=== PATIENT | female | born 1980 | race Caucasian/White ===

== ENCOUNTER 2020-03-26 13:14 | Outpatient (CLI) | payer OTHER, SELFPAY ==
--- NOTE | ~2020-03-26 | US_ITS ---
EXAMINATION: US thyroid EXAM DATE: 03/26/2020 13:32 INDICATION: Hypothyroidism TECHNIQUE: Multiple grayscale and Doppler images of the thyroid were obtained (by a technologist who performed the scan) and subsequently reviewed. Individual nodules and recommendations may be reporte d in accordance with TI-RADS system as designated by the 2017 ACR White Paper TI-RADS committee. The re is no prior study for comparison. FINDINGS: The right there are lobe measures 5.5 x 1.2 x 1.2 cm, the left measuring 5.0 x 1.0 x 1.5 cm. There is moderately heterogeneous thyroid echogenicity and mild hypervascularity. Several focal regions were measured but they are isoechoic to the thyroid parenchyma, could be lobulations rather than thyroid n odules. Largest in the left thyroid lobe at 1.2 cm. IMPRESSION: Heterogeneous mildly hypervascular thyroid. Possible small thyroid nodules. Reviewed, dictated and finalized at location B. [employer]
== END 2020-03-26 13:15 ==
LOC: MICIMG 13:16
PROVIDERS: PCP Student in an Organized Health Care Education/Training Program; Visit Provider Student in an Organized Health Care Education/Training Program
DX: E03.9 Hypothyroidism, unspecified (principal)
CPT/HCPCS: 76536

== ENCOUNTER → 2021-02-05 11:00 | Outpatient (CLI) | payer OTHER, SELFPAY ==
--- NOTE | ~2021-02-05 | US_ITS ---
EXAMINATION: US pelvic complete DATE: 02/05/2021 11:20 INDICATION: Lower abdominal pain TECHNIQUE: Multiple transabdominal and endovaginal sonographic images of the pelvis were obtained. COMPARISON: 01/27/2011 FINDINGS: The uterus measures 10.2 x 4.1 x 5.2 cm. The endometrial complex measures 10 mm in thickness. Again seen is an anechoic cystic lesion abutting the anterior margin of the lower uterine segment and the p osterior wall of the bladder which currently measures 2.3 x 2.1 x 1.5 cm, previously measuring 1.3 x 1.2 x 0.8 cm. The right ovary measures 3.5 x 2.5 x 5.0 cm. The left ovary measures 3.5 x 2.6 x 2.7 cm . Vascular flow is identified in both ovaries on color Doppler. There is no free fluid in the pelvis. IMPRESSION: 1. Likely benign chronic cystic lesion situated between the anterior lower uterine segment and the po sterior bladder which in the past 10 years is increased from 1.3 to 2.3 cm in maximal diameter and wh ich is without evident solid soft tissue component. Differential would include bladder diverticulum, peritoneal inclusion cyst, degenerated pedunculated subserosal fibroid or potentially an endometrioma . Reviewed, dictated and finalized at location A. IMPRESSION: 1. Likely benign chronic cystic lesion situated between the anterior lower uter ine segment and the posterior bladder which in the past 10 years is increased f rom 1.3 to 2.3 cm in maximal diameter and which is without evident solid soft t issue component. Differential would include bladder diverticulum, peritoneal in clusion cyst, degenerated pedunculated subserosal fibroid or potentially an end ometrioma.
== END ==
PROVIDERS: PCP Nurse Practitioner Family; Visit Provider Nurse Practitioner Family
DX: R10.30 Lower abdominal pain, unspecified (principal)
CPT/HCPCS: 76856

== ENCOUNTER 2023-03-16 05:11 | Day surgery (SDC) | payer OTHER, SELFPAY ==
[2023-03-09 09:40] VITALS: BMI 23.3
[2023-03-16 06:27] VITALS: BP 117/75; PULSE 67; RESP 20; TEMP 36.2; O2SAT 100
[2023-03-16] MEDS: LACTATED RINGERS 1,000 ML 150 ML IV CONT (06:37)
--- NOTE | 2023-03-16 07:51 | P.HP_ITS ---
History of Present Illness History of Present Illness Consent: Risks, benefits, and alternatives have been discussed and questions answered. Patient agrees to proceed with procedure. Chief complaint: family hx colon polyps Narrative: Emily Jacobsen is a 42 year old female Presents for screening colonoscopy. Patient's current weight appetite and bowel movements are normal. Patient denies abdominal pain. She has had no bleeding. Family history is significant their sister had colon polyps an uncle had colon cancer. Review of Systems Review of Systems: Review of systems noncontributory. [facility] Past Medical History Medical History (Updated 03/16/23 @ 07:53 by John White MD) Hypothyroidism Social History Social History Years smoked: 5 Tobacco type: cigarettes Substance use: former Substance use type: marijuana Other substance usage details: Former Recreational Living arrangements: with family Spiritual care concerns: No Meds Home Medications and Allergies Home Medications Medication Instructions Recorded Confirmed Type levothyroxine 112 mcg tablet 112 mcg PO DAILY 03/09/23 03/09/23 History Allergies Allergy/AdvReac Type Severity Reaction Status Date / Time No Known Allergies Allergy Mild Verified 03/16/23 06:23 Vital Signs Vital Signs - 24 hr 03/16/23 06:27 Temperature 97.2 F L Pulse Rate 67 Respiratory Rate 20 Blood Pressure 117/75 Pulse Oximetry 100 Oxygen Delivery Room Air Exam Narrative: Physical exam reveals patient be alert. Vital signs stable. HEENT exam is unremarkable. Patient is anicteric. Lungs are clear to auscultation and percussion. Heart is without murmur or extra sounds. Abdominal exam bowel sounds are present soft nontender with no hepatosplenomegaly. Digital external rectal exam normal. Assessment and Plan Assessment and plan (1) Other family history of colon polyps: Code(s): Z83.718 - Other family history of colon polyps Status: Acute Assessment and Plan: Patient's sister has had colon polyps , an uncle has had colon cancer. Patient herself presents for for screening colonoscopy. Suggest follow-up colonoscopies at 5 year intervals.
[2023-03-16 07:52] VITALS: BP 107/65; PULSE 66; RESP 19; O2SAT 100
[2023-03-16 08:02] VITALS: BP 109/78; PULSE 54; RESP 18; O2SAT 100
[2023-03-16 08:12] VITALS: BP 119/75; PULSE 50; RESP 18; O2SAT 100
== END 2023-03-16 08:21 | disposition home or self-care (01) ==
PROVIDERS: PCP Nurse Practitioner Family; Visit Provider Internal Medicine Gastroenterology
PROC: 0DJD8ZZ Inspection of Lower Intestinal Tract, Via Natural or Artificial Opening Endoscopic (ICD-10-PCS; CPT 45378; principal; 2023-03-16 07:30)
DX: Z12.11 Encounter for screening for malignant neoplasm of colon (principal); K64.8 Other hemorrhoids; Z83.719 Family history of colon polyps, unspecified; E03.9 Hypothyroidism, unspecified; Z87.891 Personal history of nicotine dependence
CPT/HCPCS: 45378; J2704; J7120

== ENCOUNTER 2023-07-25 10:16 | Day surgery (SDC) | payer OTHER, SELFPAY ==
[2023-07-25] VITALS (10 sets, daily range): BP systolic 106–125; BP diastolic 61–83; PULSE 70–98; RESP 14–18; TEMP 36.7–36.9; O2SAT 99–100
--- NOTE | ~2023-07-25 | CT_ITS ---
EXAMINATION: CT abdomen pelvis w con DATE: 07/25/2023 12:05 INDICATION: Abdominal pain and vomiting TECHNIQUE: Computed tomography (CT) of the abdomen and pelvis was performed with 100 mL Omnipaque-350 intravenous contrast. Automated exposure control and iterative reconstruction technique were employe d. The dose-length product was 221.95 mGy-cm. COMPARISON: None FINDINGS: Lung bases are clear. Heart size is normal. No pericardial or pleural effusion. Liver, gallbladder, s pleen, pancreas, bilateral adrenal glands and right kidney are normal. 5 mm low-attenuation left karuna l cyst. No bowel obstruction. There is central high attenuation appendicolith within the proximal thi rd of the appendix. There is gas filling the appendix between the appendicolith in the cecum. The mor e distal appendix is fluid-filled and mildly dilated measuring up to 7 mm but without evident wall th ickening or definitive periappendiceal inflammatory stranding. There is diffuse wall thickening of th e partially decompressed bladder. Anteverted uterus and bilateral adnexa are unremarkable. 1.5 cm nab othian cyst at the cervix. Small amount of free fluid in the pelvis which could be reactive or physio logic. No abscess or free intraperitoneal gas. No pathologically enlarged abdominal or pelvic lymphad enopathy. Bones are unremarkable. IMPRESSION: 1. Fluid filling the mildly dilated appendix distal to a high attenuation likely appendicolith in the proximal appendix. This raises concern for acute appendicitis however there is no definitive wall th ickening or periappendiceal inflammatory stranding to more specifically suggest this. Reviewed, dictated and finalized at location B. IMPRESSION: 1. Fluid filling the mildly dilated appendix distal to a high attenuation likel y appendicolith in the proximal appendix. This raises concern for acute appendi citis however there is no definitive wall thickening or periappendiceal inflamm atory stranding to more specifically suggest this.
--- NOTE | 2023-07-25 10:34 | ED.ABDPAIN ---
HPI - Abdominal Pain General Chief Complaint: Abdominal Pain <JONG San Last Filed: 07/25/23 13:41> Stated Complaint: Abdominal pain <JONG San Last Filed: 07/25/23 13:41> Time Seen by Provider: 07/25/23 10:18 <Alondra Arredondo PA-C - Last Filed: 07/25/23 13:41> Source: patient <Alondra JONG Grubbs Last Filed: 07/25/23 13:41> Mode of arrival: ambulatory <JONG San Last Filed: 07/25/23 13:41> Limitations: no limitations <JONG San Last Filed: 07/25/23 13:41> History of Present Illness HPI narrative: This is a 42 year old female that presents to the ER for abdominal pain ongoing since last night. Associated with nausea and vomiting. The pain is cramping in nature. Denies fevers, dysuria or diarrhea. <Alondra Arredondo PA-C - Last Filed: 07/25/23 13:41> Related Data Home Medications: Home Medications Medication Instructions Recorded Confirmed levothyroxine 112 mcg tablet 112 mcg PO DAILY 03/09/23 07/25/23 <Alondra Arredondo PA-C - Last Filed: 07/25/23 13:41> Allergies/Adverse Reactions: Allergies Allergy/AdvReac Type Severity Reaction Status Date / Time No Known Allergies Allergy Mild Verified 07/25/23 13:58 <JONG San Last Filed: 07/25/23 13:41> Review of Systems Review of Systems: CONSTITUTIONAL: Denies fever GASTROINTESTINAL: Reports abdominal pain, nausea, vomiting. Denies diarrhea. GENITOURINARY: Denies dysuria <JONG San Last Filed: 07/25/23 13:41> All systems reviewed & are unremarkable except as noted in HPI and below <Alondra Arredondo PA-C - Last Filed: 07/25/23 13:41> [facility] Past Medical History Medical History: Medical History Hypothyroidism <Alondra Arredondo PA-C - Last Filed: 07/25/23 13:41> Surgical History Surgical History: Surgical History History of <Alondra Arredondo PA-C - Last Filed: 07/25/23 13:41> Social History Social History: Social History Years smoked: 5 Smoking status: Former smoker Tobacco type: cigarettes Additional smoking assessment comments: socially during HS Alcohol intake: never Substance use: former Substance use type: marijuana Other substance usage details: socially during HS Living arrangements: with family Spiritual care concerns: No <Alondra Arredondo PA-C - Last Filed: 07/25/23 13:41> Exam Narrative: GENERAL: Well-appearing, well-nourished, and in no acute distress. HEAD: Normocephalic, atraumatic. EYES: EOMI. ENT: Nares clear, no rhinorrhea or epistaxis. Mucous membranes moist. CHEST: Clear to auscultation. No respiratory distress. No wheezes rales or rhonchi HEART: Regular rate and rhythm. No murmur heard. Normal peripheral pulses. ABDOMEN: Soft, nondistended, normal active bowel sounds. Tenderness to palpation in the mid lower abdomen, without guarding EXTREMITIES: Normal range of motion. No edema. SKIN: Warm, dry, no rash. NEURO: No focal deficits. Alert and oriented x3. PSYCH: Normal mood and affect <Alondra Arredondo PA-C - Last Filed: 07/25/23 13:41> Course Course Emergency Course: Patient updated on her workup and agrees with plan of care <Alondra Arredondo PA-C - Last Filed: 07/25/23 13:41> TILE CONDUIT LAYER/PA Physician Supervision This visit was performed by both a physician and an APC. I performed all aspects of the MDM as documented. <Carmelo Alicia MD - Last Filed: 07/25/23 18:12> Consultations Consultation #1: Spoke with Dr. Ricardo about patient and workup. Patient will be taken to the OR this afternoon. Would like patient to be given a dose of Invanz <Alondra Arredondo PA-C - Last Filed: 07/25/23 13:41> Date: 07/25/23 <Alondra Arredondo PA-C - Last Filed: 07/25/23 13:41> Vital Si
[2023-07-25 10:49] LABS: Basophils Percent Auto 0.2 % (0.2-1.2); Eosinophils Percent Auto 0.1 % (0-4.4); Hematocrit 38.1 % (37.0-47.0); Hemoglobin 12.7 g/dL (12.0-15.0); Immature Granulocyte Absolute 0.04 K/mm3 (0.00-0.031); Immature Granulocyte Percent A 0.3 % (0-0.5); Lymphocytes Absolute Auto 0.65 K/mm3 (0.9-3.2); Lymphocytes Percent Auto 5.3 % (18.3-44.2); Mean Corpuscular HGB Conc 33.3 g/dl (32-36); Mean Corpuscular Hemoglobin 31.4 pg (26-34); Mean Corpuscular Volume 94.3 fl (80-100); Mean Platelet Volume 9.6 fl (7.4-10.4); Monocytes Absolute Auto 0.8 K/mm3 (0.1-0.6); Monocytes Percent Auto 6.7 % (2.6-8.5); Neutrophils Absolute Auto 10.8 K/mm3 (1.3-6.7); Neutrophils Percent Auto 87.4 % (45.5-73.1); Platelet Count Result 198 k/mm3 (150-375); Red Blood Count 4.04 M/mm3 (4.2-5.4); Red Cell Distribution Width 12.6 % (11.5-14.5); White Blood Count 12.4 K/mm3 (4.5-10.0)
[2023-07-25] MEDS: ONDANSETRON INJ 4 MG/2 ML VIAL IV PUSH (10:49)
[2023-07-25] MEDS: FAMOTIDINE 20 MG/2 ML VIAL IV PUSH (10:49)
[2023-07-25] MEDS: SODIUM CHLORIDE 0.9% IV 1,000 ML 999 ML IV CONT ×2 (10:49→12:11)
[2023-07-25 10:59] LABS: Alanine Aminotransferase 17 U/L (6-35); Albumin Level 4.7 g/dL (3.5-5.1); Alkaline Phosphatase 42 U/L (38-126); Anion Gap 9 mmol/L (8-16); Aspartate Amino Transferase 27 U/L (14-36); Bilirubin,Total 0.8 mg/dL (0.2-1.3); Blood Urea Nitrogen 7 mg/dL (7-17); Calcium 9.3 mg/dL (8.4-10.2); Carbon Dioxide 23 mmol/L (22-30); Chloride 103 mmol/L (98-107); Estimated CRCL calculation 84 ml/min; Estimated Glomerular Filt Rate > 60; Glucose 133 mg/dL (65-110); Lipase 41 U/L (23-300); Potassium 3.9 mmol/L (3.4-5.0); Sodium 135 mmol/L (137-145)
[2023-07-25 11:37] LABS: Influenza A QL RT-PCR Negative (Negative); Influenza B QL RT-PCR Negative (Negative); SARS-CoV-2 RNA PCR Negative (Negative)
[2023-07-25] MEDS: MORPHINE SULFATE (*CRX) 4 MG/ML INJ IV PUSH (11:46)
[2023-07-25 12:04] LABS: Appearance Urine Clear (Clear); Bilirubin Urine Negative (Negative); Blood Urine Negative (Negative); Color Urine Yellow (Yellow); Glucose Urine UA Negative (Negative); Ketones Urine 3+ mg/dL (Negative); Leukocyte Esterase Ur Negative LEU/UL (Negative); Nitrate Urine Negative (Negative); Protein Urine Negative (Negative); Specific Grav Ur 1.022 (1.001-1.035); Urobilinogen Urine 0.2 mg/dL (<2.0); pH Urine 6.5 (5.0-9.0)
[2023-07-25 12:06] LABS: Add Urine Microscopic? NO
--- NOTE | 2023-07-25 13:06 | PM.IMHP ---
H&P: HPI History of Present Illness Date/Time: 07/25/23 13:06 Chief Complaint: Acute appendicitis Narrative: patient is a 42-year-old female who is otherwise healthy aside from hypothyroidism who started having pain about 12hours ago the lower abdomen which is now localized to right lower quadrant the abdomen. She has had no diarrhea but has had multiples of nausea vomiting. Has a mild leukocytosis of 12,000. CT scan abdomen pelvis was performed showing a mildly dilated appendix which is fluid filled but there is a appendicoliths noted within the appendiceal lumen. No perforation or periappendiceal abscess is noted. Patient's only prior abdominal surgical history is a x2. Last 1 was over 10 years ago. She works as a dental hygienist. Denies smoking or drug use. Denies any history of diabetes, congestive heart failure, myocardial infarction, stroke, COPD or asthma. She does have a history of hypothyroidism for which she is well controlled on Synthroid. Review of Systems Review of Systems: The remainder of the review of systems to include constitutional, HEENT, cardiovascular, respiratory, GI, , integumentary, musculoskeletal, endocrine, immunologic, hematologic, psychiatric, and neurologic are all negative except for which is mentioned above in the HPI. [facility] Past Medical History Medical History Hypothyroidism Surgical History Surgical History History of Social History Social History Years smoked: 5 Tobacco type: cigarettes Substance use: former Substance use type: marijuana Other substance usage details: Former Recreational Living arrangements: with family Spiritual care concerns: No Meds Home Medications and Allergies Home Medications Medication Instructions Recorded Confirmed Type levothyroxine 112 mcg tablet 112 mcg PO DAILY 03/09/23 03/09/23 History Allergies Allergy/AdvReac Type Severity Reaction Status Date / Time No Known Allergies Allergy Mild Verified 03/16/23 06:23 Vital Signs Vital Signs - 24 hr 07/25/23 10:20 07/25/23 11:00 Temperature 36.9 C Pulse Rate 77 80 Respiratory Rate 16 16 Blood Pressure 125/72 116/74 Pulse Oximetry 100 100 Oxygen Delivery Room Air Exam Const: General: comfortable and no acute distress HENMT: Ears: TM's normal bilaterally Face/Nose/Sinus: Normal nares present Mouth: Yes moist mucous membranes Eyes: General: appearance normal, both eyes and all related structures Sclera: sclerae normal Pupils: Equal, round and reactive pupils present EOM: EOMs intact bilaterally Neck: Neck: supple and no JVD Resp: Effort & Inspection: normal respiratory effort Auscultation: clear to auscultation bilaterally Cardio: Rate: regular rate and bradycardic GI: Other: Abdomen is soft and nondistended. Moderate tenderness to palpation right lowe quadrant over the appendix. Localized guarding is noted but no generalized peritoneal signs are noted. No ventral hernias. No masses. Skin: General skin exam: normal color and no rashes or lesions noted Neuro: General: gait normal Speech: normal speech Motor exam (neuro): 5/5 motor strength present throughout Sensory Exam: normal sensation Extrem: General: normal to inspection Psych: Mental Status: mental status grossly normal Affect: normal affect H&P: Results Labs Labs: Short CBC 07/25/23 Range/Units 10:43 WBC 12.4 H (4.5-10.0) K/mm3 Hgb 12.7 (12.0-15.0) g/dL Hct 38.1 (37.0-47.0) % Plt Count 198 (150-375) k/mm3 BMP 07/25/23 10:43 Sodium 135 L Potassium 3.9 Chloride 103 Carbon Dioxide 23 BUN 7 Creatinine 0.60 L Glucose 133 H Calcium 9.3 Liver Function 07/25/23 Range/Units 10:43 Total Bilirubin 0.8 (0.2-1.3) mg/dL AST 27 (14-36)
--- NOTE | 2023-07-25 13:13 | WPDHPUPDATE1 ---
History and Physical Update Update Date/Time: 07/25/23 13:13 History and Physical has been reviewed, including an updated exam of the patient. There are NO changes in the patient's condition. Risks, benefits, and alternatives have been discussed and questions answered. Patient agrees to proceed with procedure.
[2023-07-25] MEDS: LACTATED RINGERS 1,000 ML 30 ML IV CONT ×2 (13:40→16:55)
--- NOTE | 2023-07-25 13:45 | WPDANESEPPF ---
Anes - Initial Pre Proc Eval Procedure: Operation Date: 07/25/23 15:00 Proposed Procedures p Laparoscopic Appendectomy - Pablo Ricardo MD Date/Time: 07/25/23 13:45 Surgeon: Pablo Ricardo MD Pre Op Diagnosis: Abdominal pain Patient Data Age: 42 Gender: F Height: 1.57 m Weight: 56.4 kg Last Vital Signs Temp 36.9 C 07/25/23 10:20 Pulse 80 07/25/23 11:00 Resp 16 07/25/23 11:00 BP 116/74 07/25/23 11:00 Pulse Ox 100 07/25/23 11:00 O2 Del Method Room Air 07/25/23 10:20 Allergies Allergy/AdvReac Type Severity Reaction Status Date / Time No Known Allergies Allergy Mild Verified 07/25/23 13:58 Home Medications Medication Instructions Recorded Confirmed Type levothyroxine 112 mcg tablet 112 mcg PO DAILY 03/09/23 07/25/23 History Laboratory Tests 07/25/23 07/25/23 10:43 11:54 WBC 12.4 H K/mm3 (4.5-10.0) RBC 4.04 L M/mm3 (4.2-5.4) Hgb 12.7 g/dL (12.0-15.0) Hct 38.1 % (37.0-47.0) MCV 94.3 fl (80-100) MCH 31.4 pg (26-34) MCHC 33.3 g/dl (32-36) RDW 12.6 % (11.5-14.5) Plt Count 198 k/mm3 (150-375) MPV 9.6 fl (7.4-10.4) Immature Gran % (Auto) 0.3 % (0-0.5) Neut % (Auto) 87.4 H % (45.5-73.1) Lymph % (Auto) 5.3 L % (18.3-44.2) [place] % (Auto) 6.7 % (2.6-8.5) Eos % (Auto) 0.1 % (0-4.4) Baso % (Auto) 0.2 % (0.2-1.2) Lymph # (Auto) 0.65 L K/mm3 (0.9-3.2) [place] # (Auto) 0.8 H K/mm3 (0.1-0.6) Eos # (Auto) 0.0 K/mm3 (0-0.3) Baso # (Auto) 0.0 K/mm3 (0.0-0.1) Abs Immat Gran (auto) 0.04 H K/mm3 (0.00-0.031) Absolute Neuts (auto) 10.8 H K/mm3 (1.3-6.7) Absolute Nucleated RBC 0.000 K/mm3 (0.0-0.012) Nucleated RBC % 0.0 % (0.0-0.2) Sodium 135 L mmol/L (137-145) Potassium 3.9 mmol/L (3.4-5.0) Chloride 103 mmol/L (98-107) Carbon Dioxide 23 mmol/L (22-30) Anion Gap 9 mmol/L (8-16) BUN 7 mg/dL (7-17) Creatinine 0.60 L mg/dL (0.7-1.0) Estim Creat Clear Calc 84 ml/min Estimated GFR > 60 (59 - ) Glucose 133 H mg/dL (65-110) Calcium 9.3 mg/dL (8.4-10.2) Total Bilirubin 0.8 mg/dL (0.2-1.3) AST 27 U/L (14-36) ALT 17 U/L (6-35) Alkaline Phosphatase 42 U/L (38-126) Total Protein 8.0 g/dL (6.3-8.2) Albumin 4.7 g/dL (3.5-5.1) Lipase 41 U/L (23-300) Urine Color Yellow (Yellow) Urine Appearance Clear (Clear) Urine pH 6.5 (5.0-9.0) Ur Specific [place] 1.022 (1.001-1.035) Urine Protein Negative mg/dL (Negative) Urine Glucose (UA) Negative mg/dL (Negative) Urine Ketones 3+ H mg/dL (Negative) Ur Blood (Man) Negative (Negative) Urine Nitrate Negative (Negative) Urine Bilirubin Negative (Negative) Urine Urobilinogen 0.2 mg/dL (<2.0) Leukocyte Esterase Rfl Negative EMMA/UL (Negative) Influenza A (RT-PCR) Negative (Negative) Influenza B (RT-PCR) Negative (Negative) SARS-CoV-2 RNA (RT-PCR) Negative (Negative) Patient hx anesthesia problems: post op nausea/vomiting Family hx anesthesia problems: none Results Review: All pre-operative results and documents have been reviewed as part of the pre-operative evaluation. [facility] Past Medical History Medical History Hypothyroidism Surgical History Surgical History History of Social History Social History Years smoked: 5 Tobacco type: cigarettes Substance use: former Substance use type: marijuana Other substance usage details: Former Recreational Living arrangements: with family
[2023-07-25] MEDS: SCOPOLAMINE 1 MG PATCH 1 PATCH TRANSDERM (14:10)
[2023-07-25] MEDS: fentaNYL CITRATE INJ (*CRX) 100 MCG/2 ML VIAL 25 MCG IV PUSH ×2 (14:11→14:15)
[2023-07-25] MEDS: ERTAPENEM 1 GM/NS 50 ML 1 GM/50 ML BAG IVPB (16:04)
[2023-07-25] MEDS: LIDO 1%/EPINEPHRINE 1:100,000 50 ML VIAL 15 ML INFILTRATE (16:16)
[2023-07-25] MEDS: KETOROLAC 30 MG/ML VIAL (*BKC) IV PUSH (16:29)
--- NOTE | 2023-07-25 16:51 | W.PM.PROC2 ---
Procedure Note - Detailed Date of Procedure 07/25/23 Pre-op Diagnosis Acute appendicitis Post-op Diagnosis Same Procedure Performed Laparoscopic appendectomy Surgeon Pablo Ricardo MD Charger Tester Lauren BECK Anesthesia General Indications Patient is a 42-year-old female presented with 12hour history of worsening right lower quadrant abdominal pain. She had a leukocytosis of 12,000. CT scan abdomen pelvis showed a dilated appendix with appendicolith in the proximal portion of the appendix. Findings were consistent with acute appendicitis. Presents now for emergent laparoscopic appendectomy Findings Patient had a dilated inflamed appendix throughout the distal 2/3 of the appendix. The base the appendix was relatively normal in appearance and without any inflammation. No perforation the appendix was noted. No periappendiceal abscess. Description of Procedure After informed consent was obtained patient brought to the operating room she was placed supine position and general endotracheal anesthesia was administered. A Allison catheter was placed decompress the bladder. The abdomen was then prepped and draped usual sterile fashion. Time-out was then performed correctly identifying the patient as well as procedure to be performed. She was given Invanz for perioperative IV antibiotics. I then made a small 5mm incision in left upper quadrant then used a 5mm Optiview port into the abdomen in that position. I then insufflated the abdomen to adequate pneumoperitoneum of 15mmHg of CO2. There was 1 small adhesion to the lower abdominal wall and this was an adhesion of the omentum. I then placed a 12mm periumbilical trocar port and then with hook electrocautery divided the will move to adhesion released from the abdominal wall. I then placed a 5mm suprapubic trocar port and a 5mm right lower quadrant trocar port all under direct visualization. The appendix was easily seen the right lower quadrant. It was dilated and inflamed throughout its distal 2/3. There is no perforation or gangrene to the appendix. The base of the appendix appeared to be relatively normal. Utilizing laparoscopic instruments through these ports I then elevated the appendix and held up and made a defect through the mesoappendix with a laparoscopic dissected. A blue load to a 45mm Endo-JAN stapler was then used to divide the appendix flush with the cecum. A blue load to the Endo-JAN stapler was then used to divide the mesoappendix. The appendix was then placed into an Endo-Catch bag and brought out through the periumbilical trocar port site. It was passed off table sent to pathology for examination. I then irrigated out the right lower quadrant the abdomen exam of both staple lines. Both staple lines were hemostatic. I then aspirated the fluid from light right lower quadrant the abdomen from the pelvis. I also aspirated the fluid from the right upper quadrant. I then removed all the trocar ports under direct visualization all port sites appeared hemostatic. I then allowed the abdomen decompressed. I then irrigated the port sites sterile saline solution. The 12mm periumbilical trocar port was then closed utilizing a 0 Vicryl suture at the fascial level. The skin edges in all the port sites were then approximated utilizing a running subcuticular 4 Monocryl suture. The incisions were then cleaned the skin glue was applied. The patient tolerated the procedure well no complications. All sponges, needles, and instrument counts were correct at the end procedure. EBL was _10__cc. The patient was awakened and taken to recovery in stable and satisfactory condition. Implants None Estimated Blood Loss 10 Drains No Packing No Pathology Yes (Appendix to pathology) Complications No immediate complications Condition Stable Disposition PACU [facility] Billing Surgery - Charge Forward: Surgery Billing
== END 2023-07-25 18:25 | disposition home or self-care (01) ==
LOC: ANHED 12:53 → ANHSURGERY 12:56
PROVIDERS: Emergency Provider Physician Assistant; PCP Nurse Practitioner Family; Visit Provider Surgery
PROC: 0DTJ4ZZ Resection of Appendix, Percutaneous Endoscopic Approach (ICD-10-PCS; CPT 44970; principal; 2023-07-25 15:00)
DX: K35.80 Unspecified acute appendicitis (principal); E03.9 Hypothyroidism, unspecified; Z20.822 Contact with and (suspected) exposure to COVID-19
CPT/HCPCS: 44970; 36415; 74177; 80053; 81025; 83690; 85025; 87636; 88304; 96361; 96374; 96375; 99285; A9270; J1100; J1335; J1885; J2250; J2270; J2405; J2704; J3010; J7030; J7120; Q9967